=== PATIENT | male | born 1975 | race African-American/Black ===

== ENCOUNTER 2017-11-22 00:29 | Emergency (ER) | payer BC ==
[~2017-11-22] VITALS: Ht 170.2 cm; Wt 106.0 kg
[2017-11-22 01:54] VITALS: BP 134/88
== END 2017-11-22 01:54 | disposition home or self-care (01) ==
LOC: EME 00:29
PROVIDERS: Emergency Medicine
DX: L98.0 Pyogenic granuloma (principal); E11.65 Type 2 diabetes mellitus with hyperglycemia; Z79.84 Long term (current) use of oral hypoglycemic drugs; Z88.2 Allergy status to sulfonamides
CPT/HCPCS: 82948; 99281; 99283